=== PATIENT | female | born 1930 | race Hispanic/Latino ===

== ENCOUNTER 2018-06-22 12:05 | Inpatient (IN) | payer MEDICARE ==
[2018-06-22 12:17] VITALS: BMI 22.3
[2018-06-22 13:31] LABS: BASO # 0.1 K/uL (0.0-0.2); BASO % 0.7 % (0.0-2.0); EOS # 0.1 K/uL (0.0-0.7); LYMPH # 2.2 K/uL (1.0-4.3); LYMPH % 18.6 % (20.0-40.0); MEAN CELL VOLUME 91.8 fL (81.0-99.0); MEAN CORPUSCULAR HEMOGLOBIN 29.7 pg (27.0-31.0); MEAN CORPUSCULAR HGB CONC 32.4 g/dL (33.0-37.0); MEAN PLATELET VOLUME 8.7 fL (7.2-11.7); MONO # 0.7 K/uL (0.0-0.8); MONO % 5.4 % (0.0-10.0); NEUT # 8.9 K/uL (1.8-7.0); NEUT % 74.3 % (50.0-75.0); RBC 4.03 Mil/uL (3.80-5.20); RED CELL DISTRIBUTION WIDTH 15.2 % (11.5-14.5)
[2018-06-22 13:49] LABS: ALB/GLOB RATIO 1.1 (1.0-2.1); ALBUMIN 4.7 g/dL (3.5-5.0); BLOOD UREA NITROGEN 56 mg/dL (7-17); CALCIUM 9.5 mg/dl (8.6-10.4); GFR NON-AFRICAN AMERICAN 14
[2018-06-22 13:53] LABS: ALT/SGPT 10 U/L (9-52); AST/SGOT 29 U/L (14-36)
[2018-06-22 13:55] LABS: B-TYPE NATRIURETIC PEPTIDE 1600 pg/mL (0-900)
--- NOTE | 2018-06-22 14:44 | C.PDOC ---
History Of Present Illness Patient is a 87 year old female who presents to the ED after being referred by her PMD for uncontrolled HTN over 2 weeks. Patient states her hypertensive meds were stopped due to renal insufficiency.SHe states that she was switched form HCTZ and Norvasc to Nifedipine 30mg with good compliance. Patient denies any SOB, CP, nausea, dizziness, or headache. Time Seen by Provider: 06/22/18 13:03 Chief Complaint (Nursing): High Blood Pressure History Per: Patient History/Exam Limitations: no limitations Onset/Duration Of Symptoms: Days (2 weeks ) Associated Symptoms: denies: Chest Pain, Dizziness, Headache Exacerbating Factor(s): Pos: Recently Missed Doses Of Medication Recent travel outside of the [place]: No Additional History Per: Patient Past Medical History Reviewed: Historical Data, Nursing Documentation, Vital Signs Vital Signs: Last Vital Signs Temp 97.4 F L 06/22/18 12:17 Pulse 85 06/22/18 12:17 Resp 18 06/22/18 12:17 BP 192/87 H 06/22/18 12:17 Pulse Ox 94 L 06/22/18 12:17 - Medical History PMH: Diverticulitis, HTN, Pulmonary Embolism, Chronic Kidney Disease, TIA Surgical History: No Surg Hx - [facility] Procedures CENTRAL VENOUS CATHETER PLACEMENT WITH GUIDANCE (05/03/14) LAPAROSCOP LYSIS-PERITONEAL ADHES (05/03/14) PACKED CELL TRANSFUSION (01/21/14) PLICATION OF VENA CAVA (01/21/14) SERUM TRANSFUSION NEC (05/03/14) SM BOWEL SEGMENT ISOLAT (05/03/14) VACCINATION NEC (05/03/14) Family History: States: Unknown Family Hx - Social History Hx Tobacco Use: No Hx Alcohol Use: No Hx Substance Use: No - Immunization History Hx Tetanus Toxoid Vaccination: No Hx Influenza Vaccination: Yes Hx Pneumococcal Vaccination: No Review Of Systems Cardiovascular: Negative for: Chest Pain Respiratory: Negative for: Shortness of Breath Gastrointestinal: Negative for: Nausea Neurological: Negative for: Headache, Dizziness Physical Exam - Physical Exam Appears: Non-toxic, No Acute Distress, Other (white female ) Skin: Normal Color, Warm, Dry Head: Atraumatic, Normacephalic Oral Mucosa: Moist Neck: Normal ROM, Supple Chest: Symmetrical, No Deformity Cardiovascular: Rhythm Regular, No Murmur Respiratory: Normal Breath Sounds, No Rales, No Rhonchi, No Wheezing Extremity: Normal ROM Neurological/Psych: Oriented x3, Normal Speech, Normal Cognition, No Other (neurological changes ) ED Course And Treatment - Laboratory Results Result Diagrams: 06/22/18 13:25 06/22/18 13:25 Lab Results: Troponin I < 0.0120 ng/mL (0.00-0.120) 06/22/18 13:25 NT-Pro-B Natriuret Pep 1600 pg/mL (0-900) H 06/22/18 13:25 Total Bilirubin 0.7 mg/dL (0.2-1.3) 06/22/18 13:25 AST 29 U/L (14-36) 06/22/18 13:25 ALT 10 U/L (9-52) 06/22/18 13:25 Alkaline Phosphatase 100 U/L (38-126) 06/22/18 13:25 Total Protein 8.9 g/dL (6.3-8.3) H 06/22/18 13:25 Albumin 4.7 g/dL (3.5-5.0) 06/22/18 13:25 Globulin 4.2 gm/dL (2.2-3.9) H 06/22/18 13:25 Albumin/Globulin Ratio 1.1 (1.0-2.1) 06/22/18 13:25 Lab Interpretation: Abnormal (creat increased c/w 2.3 from 01/22) ECG: Interpreted By Ne ECG Rhythm: Sinus Rhythm ECG Interpretation: Normal Rate From EC O2 Sat by Pulse Oximetry: 94 (on RA) Pulse Ox Interpretation: Normal - Radiology CXR: Interpreted by Me CXR Interpretation: Yes: No Acute Disease Progress Note: norvasc 10 PO Reevaluation Time: 14:45 Reassessment Condition: Improved - Physician Consult Information Outcome Of Conversation: 1400: Falied to contact Dr. James to ascertain recent bun/Creat. 1445: d/w Dr. Eyad Tello- Hospitalist Application Manager- admitting for PMD Trudi araujo to admit. Medical Decision Making Medical Decision Making: Plan: EKG CXR Bloodwork Urinalysis Norvasc 10mg PO acute on chronic renal insuffiency, uncontrolled HTN Disposition Doctor Will See Patient In The: Hospital Counseled Patient/Family Regarding: Studies Performed, Diagnosis - Disposition Disposition: HOSPITALIZED Disposition Time: 14:47 Condition: GOOD - Clinical Impression Clinical Impression: Hypertension - Scribe Statement The provider has reviewed the documentation as recorded by the Duy Vargas All medical record entries made by the Devenibjacqueline were at my direction and personally dictated by me. I have reviewed the chart and agree that the record accurately reflects my personal performance of the history, physical exam, medical decision making, and the department course for this patient. I have also personally directed, reviewed, and agree with the discharge instructions and disposition.
[2018-06-22 15:03] LABS: SQUAMOUS EPITHIAL 2 /hpf (0-5); URINE BACTERIA RARE (<OCC); URINE BILIRUBIN NEGATIVE (NEGATIVE); URINE BLOOD NEGATIVE (NEGATIVE); URINE CLARITY Clear (Clear); URINE COLOR Straw (YELLOW); URINE GLUCOSE (UA) NORMAL (Normal); URINE LEUKOCYTE ESTERASE NEG Leu/uL (Negative); URINE PROTEIN 2+ mg/dL (NEGATIVE); URINE UROBILINOGEN NORMAL mg/dL (0.2-1.0)
--- NOTE | 2018-06-22 15:36 | CP.PCM.HP ---
History of Present Illness - History of Present Illness History of Present Illness: PGY-1 H&P for Dr. Tello's service Patient is a 87 year old female w/ PMH of colitis, HTN, CKD stage 3, and r ecurrent pulmonary embolism sent to emergency room for elevated blood pressure during INR check with Dr. Garcia. Patient states that she recently has had her blood pressure medications adjusted multiple times due to visiting multiple doctors. Patient states that she has been compliant with her medications. Patient admits to headaches and vision changes since blood pressure issues began. Patient states the headache is located in the posterior occipital region. Patient denies fevers, chest pain, sob, n/v, constipation, dysuria, and leg pain. PMH- colitis, HTN, recurrent pulmonary embolism PSH- Denies FH- Heart disease ('s family) Meds- Warfarin 2mg daily, Nifedipine 30mg daily, Albuterol 2 puffs daily, Imodium PRN All- NKDA Social- Denies alcohol, drug, tobacco use PMD- Dr. James Code- DNR/DNI Present on Admission - Present on Admission Any Indicators Present on Admission: Yes History of DVT/PE: Yes Review of Systems - Review of Systems Review of Systems: 12 point ROS obtained and noted in HPI Past Patient History - Past Medical History & Family History Past Medical History?: Yes - Past Social History Smoking Status: Never Smoked - CARDIAC Hx Hypertension: Yes - PULMONARY Hx Pulmonary Embolism: Yes - NEUROLOGICAL Hx Transient Ischemic Attacks (TIA): Yes - HEENT Hx HEENT Problems: No - RENAL Hx Chronic Kidney Disease: Yes - ENDOCRINE/METABOLIC Hx Endocrine Disorders: No - HEMATOLOGICAL/ONCOLOGICAL Hx Blood Disorders: No - INTEGUMENTARY Hx Dermatological Problems: No - MUSCULOSKELETAL/RHEUMATOLOGICAL Hx Falls: Yes - GASTROINTESTINAL Hx Diverticulitis: Yes - GENITOURINARY/GYNECOLOGICAL Hx Genitourinary Disorders: No - PSYCHIATRIC Hx Substance Use: No - SURGICAL HISTORY Hx Surgeries: Yes Hx Hysterectomy: Yes Other/Comment: stomach obstruction surgery - ANESTHESIA Hx Anesthesia: Yes Hx Anesthesia Reactions: No Meds Allergies/Adverse Reactions: Allergies Allergy/AdvReac Type Severity Reaction Status Date / Time No Known Allergies Allergy Verified 06/22/18 12:16 Physical Exam - Constitutional Appears: Non-toxic, No Acute Distress - Head Exam Head Exam: NORMAL INSPECTION, NORMOCEPHALIC - Eye Exam Eye Exam: EOMI, Normal appearance. absent: Nystagmus, Scleral icterus - ENT Exam ENT Exam: Mucous Membranes Moist, Normal Exam - Respiratory Exam Respiratory Exam: NORMAL BREATHING PATTERN. absent: Rales, Rhonchi, Wheezes - Cardiovascular Exam Cardiovascular Exam: REGULAR RHYTHM, +S1, +S2. absent: Tachycardia, JVD, RRR - GI/Abdominal Exam GI & Abdominal Exam: Normal Bowel Sounds, Soft. absent: Diminished Bowel Sounds, Distended, Firm, Guarding - Extremities Exam Extremities exam: Positive for: normal inspection, pedal edema. Negative for: tenderness Additional comments: minimal pedal edema noted - Neurological Exam Neurological exam: Alert, Oriented x3 - Psychiatric Exam Psychiatric exam: Normal Affect, Normal Mood - Skin Skin Exam: Dry, Normal Color Results - Vital Signs Recent Vital Signs: Last Vital Signs Temp 97.4 F L 06/22/18 12:17 Pulse 85 06/22/18 12:17 Resp 18 06/22/18 14:35 BP 198/90 H 06/22/18 14:35 Pulse Ox 94 L 06/22/18 15:24 - Labs Result Diagrams: 06/22/18 13:25 06/22/18 13:25 Labs: Laboratory Results - last 24 hr 06/22/18 06/22/18 06/22/18 13:25 13:25 14:36 WBC 12.0 H RBC 4.03 Hgb 12.0 D Hct 37.0 MCV 91.8 D MCH 29.7 MCHC 32.4 L RDW 15.2 H Plt Count 346 D MPV 8.7 Neut % (Auto) 74.3 Lymph % (Auto) 18.6 L [place] % (Auto) 5.4 Eos % (Auto) 1.0 Baso % (Auto) 0.7 Neut # (Auto) 8.9 H Lymph # (Auto) 2.2 [place] # (Auto) 0.7 Eos # (Auto) 0.1 Baso # (Auto) 0.1 Sodium 140 Potassium 5.1 Chloride 107 Carbon Dioxide 19 L Anion Gap 19 BUN 56 H Creatinine 3.2 H Est GFR ( Amer) 17 Est GFR (Non-Af Amer) 14 Random Glucose 100 Calcium 9.5 Total Bilirubin 0.7 AST 29 ALT 10 Alkaline Phosphatase 100 Troponin I < 0.0120 NT-Pro-B Natriuret Pep 1600 H Total Protein 8.9 H Albumin 4.7 Globulin 4.2 H Albumin/Globulin Ratio 1.1 Urine Color Straw Urine Clarity Clear Urine pH 6.0 Ur Specific [place] 1.011 Urine Protein 2+ H Urine Glucose (UA) Normal Urine Ketones Negative Urine Blood Negative Urine Nitrate Negative Urine Bilirubin Negative Urine Urobilinogen Normal Ur Leukocyte Esterase Neg Urine WBC (Auto) 1 Urine RBC (Auto) 1 Ur Squamous Epith Cells 2 Urine Bacteria Rare Assessment & Plan - Assessment and Plan (Free Text) Assessment: Patient is a 87 year old female w/ PMH of colitis, HTN, CKD stage 4, and recurrent pulmonary embolism sent to emergency room for elevated blood pressure during INR check with Dr. Garcia. Admitted for hypertensive emergency with elevated creatinine, headaches, and vision changes. Hypertensive emergency Nephrology Consulted- Dr. Lunsford- recommendations appreciated Norvasc given in ED Nifedipine 30mg po daily- home med Norvasc 10mg po prn Continuous blood pressure checks q4h DO not reduce blood pressure more than 25% in first 6 hours (admitting bp 200/110) Tylenol 650mg po PRN EKG- NSR with normal qtc; no ST elevations noted; patient asymptomatic of chest pain Will discuss with PMD for baseline of Cr ARF on CKD Nephro Consult: Jonn - appreciate recommendations NS @ 40mls/hr; consider renal ultrasound if patient Cr does not improve unknown baseline trend CMP in AM consider possible dialysis AVF placement if patient amenable Hx of recurrent pulmonary emoblism Dr. Garcia outpatient has workup Warfarin 2mg po daily INR pending Hx of Colitis Imodium as needed (educate patient that imodium is unnecessary as bacterial toxins need to be removed) Leukocytosis Procal pending Trend CBC in am Afebrile GI ppx: Not indicated at this time DVT ppx: Warfarin 2mg po daily Renal Diet PGY-1 Rhonda Olguin Medical Management discussed with Dr. Tello
--- NOTE | 2018-06-22 16:21 | RAD ---
Date of service: 06/22/2018 PROCEDURE: CHEST RADIOGRAPH, 1 VIEW HISTORY: SOB COMPARISON: 03/24/2017 FINDINGS: LUNGS: Clear. PLEURA: No pneumothorax or pleural fluid seen. CARDIOVASCULAR: Atherosclerotic calcification and mural plaque present. Findings are seen throughout the aorta which is non aneurysmal. No radiographic findings to suggest acute or significant cardiovascular disease. OSSEOUS STRUCTURES: No significant abnormalities. VISUALIZED UPPER ABDOMEN: Normal. OTHER FINDINGS: None. IMPRESSION: No active disease. No acute/significant interval changes. Concordant results with the preliminary interpretation rendered by the emergency department physician procedure.
[2018-06-22 16:38] VITALS: O2SAT 96
[2018-06-22] MEDS: NIFEdipine 30 mg ER Tab PO SCH (16:41)
[2018-06-22] MEDS ORDERED: Sodium Chloride 0.9% 1,000 ML IV SCH (17:00)
[2018-06-22 19:20] LABS: INR 2.2; PROTHROMBIN TIME 24.1 SECONDS (9.7-12.2)
[2018-06-22 19:32] VITALS: TEMP 97.9
--- NOTE | 2018-06-22 21:58 | CP.PCM.PCO ---
Physician Communication Note - Physician Communication Note Physician Communication Note: Please see above
[2018-06-23 00:22] VITALS: RESP 20
[2018-06-23 10:10] LABS: BASO # 0.1 K/uL (0.0-0.2); BASO % 0.8 % (0.0-2.0); EOS # 0.1 K/uL (0.0-0.7); EOS % 1.5 % (0.0-4.0); HEMOGLOBIN 10.5 g/dL (11.0-16.0); LYMPH # 2.5 K/uL (1.0-4.3); LYMPH % 28.8 % (20.0-40.0); MEAN CELL VOLUME 92.4 fL (81.0-99.0); MEAN CORPUSCULAR HGB CONC 32.5 g/dL (33.0-37.0); MEAN PLATELET VOLUME 8.6 fL (7.2-11.7); MONO # 0.6 K/uL (0.0-0.8); MONO % 6.9 % (0.0-10.0); NEUT # 5.4 K/uL (1.8-7.0); RBC 3.49 Mil/uL (3.80-5.20); RED CELL DISTRIBUTION WIDTH 14.9 % (11.5-14.5); WHITE BLOOD COUNT 8.8 K/uL (4.8-10.8)
[2018-06-23 10:22] LABS: ALB/GLOB RATIO 1.2 (1.0-2.1); ALBUMIN 3.9 g/dL (3.5-5.0); CALCIUM 8.7 mg/dl (8.6-10.4)
[2018-06-23] MEDS: NIFEdipine 30 mg ER Tab PO SCH (11:14)
[2018-06-23] MEDS ORDERED: Magnesium Oxide 400 mg Tab UD PO SCH (12:30)
--- NOTE | 2018-06-23 15:27 | CP.PCM.DIS ---
<Rhonda Olguin - Last Filed: 06/23/18 15:13> Provider - Provider Date of Admission: 06/22/18 14:44 Attending physician: Eyad Tello MD Consults: 06/22/18 15:43 Nephrology Consult Routine Comment: Consulting Provider: Donovan Lunsford Consulting Physician: Donovan Lunsford Reason for Consult: HTN emergency, DARIUSZ on CKD Time Spent in preparation of Discharge (in minutes): 45 Hospital Course - Lab Results Lab Results: Most Recent Lab Values WBC 8.8 K/uL (4.8-10.8) 06/23/18 09:30 RBC 3.49 Mil/uL (3.80-5.20) L 06/23/18 09:30 Hgb 10.5 g/dL (11.0-16.0) L 06/23/18 09:30 Hct 32.2 % (34.0-47.0) L 06/23/18 09:30 MCV 92.4 fL (81.0-99.0) 06/23/18 09:30 MCH 30.0 pg (27.0-31.0) 06/23/18 09:30 MCHC 32.5 g/dL (33.0-37.0) L 06/23/18 09:30 RDW 14.9 % (11.5-14.5) H 06/23/18 09:30 Plt Count 283 K/uL (130-400) 06/23/18 09:30 MPV 8.6 fL (7.2-11.7) 06/23/18 09:30 Neut % (Auto) 62.0 % (50.0-75.0) 06/23/18 09:30 Lymph % (Auto) 28.8 % (20.0-40.0) 06/23/18 09:30 [place] % (Auto) 6.9 % (0.0-10.0) 06/23/18 09:30 Eos % (Auto) 1.5 % (0.0-4.0) 06/23/18 09:30 Baso % (Auto) 0.8 % (0.0-2.0) 06/23/18 09:30 Neut # (Auto) 5.4 K/uL (1.8-7.0) 06/23/18 09:30 Lymph # (Auto) 2.5 K/uL (1.0-4.3) 06/23/18 09:30 [place] # (Auto) 0.6 K/uL (0.0-0.8) 06/23/18 09:30 Eos # (Auto) 0.1 K/uL (0.0-0.7) 06/23/18 09:30 Baso # (Auto) 0.1 K/uL (0.0-0.2) 06/23/18 09:30 PT 24.1 SECONDS (9.7-12.2) H 06/22/18 18:57 INR 2.2 06/22/18 18:57 Sodium 140 mmol/L (132-148) 06/23/18 09:30 Potassium 4.5 mmol/L (3.6-5.2) 06/23/18 09:30 Chloride 110 mmol/L (98-107) H 06/23/18 09:30 Carbon Dioxide 22 mmol/L (22-30) 06/23/18 09:30 Anion Gap 13 (10-20) 06/23/18 09:30 BUN 55 mg/dL (7-17) H 06/23/18 09:30 Creatinine 3.5 mg/dL (0.7-1.2) H 06/23/18 09:30 Est GFR ( Amer) 15 06/23/18 09:30 Est GFR (Non-Af Amer) 12 06/23/18 09:30 Random Glucose 87 mg/dL (65-105) 06/23/18 09:30 Calcium 8.7 mg/dl (8.6-10.4) 06/23/18 09:30 Phosphorus 5.0 mg/dL (2.5-4.5) H 06/23/18 09:30 Magnesium 1.5 mg/dL (1.6-2.3) L 06/23/18 09:30 Total Bilirubin 0.4 mg/dL (0.2-1.3) 06/23/18 09:30 AST 14 U/L (14-36) D 06/23/18 09:30 ALT 18 U/L (9-52) 06/23/18 09:30 Alkaline Phosphatase 79 U/L (38-126) 06/23/18 09:30 Troponin I < 0.0120 ng/mL (0.00-0.120) 06/22/18 13:25 NT-Pro-B Natriuret Pep 1600 pg/mL (0-900) H 06/22/18 13:25 Total Protein 7.0 g/dL (6.3-8.3) 06/23/18 09:30 Albumin 3.9 g/dL (3.5-5.0) 06/23/18 09:30 Globulin 3.2 gm/dL (2.2-3.9) 06/23/18 09:30 Albumin/Globulin Ratio 1.2 (1.0-2.1) 06/23/18 09:30 Procalcitonin 0.09 NG/ML (0.19-0.49) L 06/22/18 18:57 Urine Color Straw (YELLOW) 06/22/18 14:36 Urine Clarity Clear (Clear) 06/22/18 14:36 Urine pH 6.0 (5.0-8.0) 06/22/18 14:36 Ur Specific [place] 1.011 (1.003-1.030) 06/22/18 14:36 Urine Protein 2+ mg/dL (NEGATIVE) H 06/22/18 14:36 Urine Glucose (UA) Normal mg/dL (Normal) 06/22/18 14:36 Urine Ketones Negative mg/dL (NEGATIVE) 06/22/18 14:36 Urine Blood Negative (NEGATIVE) 06/22/18 14:36 Urine Nitrate Negative (NEGATIVE) 06/22/18 14:36 Urine Bilirubin Negative (NEGATIVE) 06/22/18 14:36 Urine Urobilinogen Normal mg/dL (0.2-1.0) 06/22/18 14:36 Ur Leukocyte Esterase Neg [place]/uL (Negative) 06/22/18 14:36 Urine WBC (Auto) 1 /hpf (0-5) 06/22/18 14:36 Urine RBC (Auto) 1 /hpf (0-3) 06/22/18 14:36 Ur Squamous Epith Cells 2 /hpf (0-5) 06/22/18 14:36 Urine Bacteria Rare (<OCC) 06/22/18 14:36 - Hospital Course Hospital Course: Upon Admission Patient is a 87 year old female w/ PMH of colitis, HTN, CKD stage 3, and recurrent pulmonary embolism sent to emergency room for elevated blood pressure during INR check with Dr. Garcia. Patient states that she recently has had her blood pressure medications adjusted multiple times due to visiting multiple doct ors. Patient states that she has been compliant with her medications. Patient admits to headaches and vision changes since blood pressure issues began. Patient states the headache is located in the posterior occipital region. Patient denies fevers, chest pain, sob, n/v, constipation, dysuria, and leg pain. Hospital Course Patient was admitted for elevated blood pressure of 192/87. She was given Norvasc 10 mg PO x2 in ED and was continued on her home medication of nifedipine 30 mg PO daily. Repeat blood pressure within 30 minutes was noted to be 160/80. Patient's blood pressure in AM was under control only with use of nifedipine. Patient left AMA with nifedipine and was told to follow up with PMD. Discharge Plan 1. Patient left AMA. 2. Discussion was had with patient and son to continue home medications including warfarin and nifedipine. The same dosages of the medications will be continued at the same time patient has taken the medications. 3. Patient was educated to followup PMD within 3-7 days of discharge from hospital. 4. Patient will be given information for nephrology Dr. Lunsford to set up care. Discharge Exam - Head Exam Head Exam: NORMAL INSPECTION, NORMOCEPHALIC - Eye Exam Eye Exam: EOMI, Normal appearance. absent: Nystagmus, Scleral icterus - ENT Exam ENT Exam: Mucous Membranes Moist - Respiratory Exam Respiratory Exam: NORMAL BREATHING PATTERN. absent: Rhonchi, Wheezes, Respiratory Distress - Cardiovascular Exam Cardiovascular Exam: REGULAR RHYTHM, +S1, +S2. absent: Tachycardia - GI/Abdominal Exam GI & Abdominal Exam: Normal Bowel Sounds, Soft. absent: Distended, Firm, Guarding, Hernia, Tenderness - Extremities Exam Extremities exam: normal inspection - Neurological Exam Neurological exam: Alert, Oriented x3 - Psychiatric Exam Psychiatric exam: Normal Affect, Normal Mood - Skin Skin Exam: Dry, Intact, Normal Color Discharge Plan - Discharge Medications Prescriptions: RX: NIFEdipine ER [Procardia XL] 30 mg PO DAILY #30 ter - Follow Up Plan Condition: GOOD Disposition: AGAINST MEDICAL ADVICE Instructions: Hypertension (DC), Hypertension (GEN) Additional Instructions: 1. Patient left AMA. 2. Discussion was had with patient and son to continue home medications including warfarin and nifedipine. The same dosages of the medications will be continued at the same time patient has taken the medications. 3. Patient was educated to followup PMD within 3-7 days of discharge from hospital. 4. Patient will be given information for nephrology Dr. Lunsford to set up care. Referrals: Donovan Lunsford MD [Staff Provider] - <Nancy Santoyo V - Last Filed: 06/23/18 23:22> Provider - Provider Date of Admission: 06/22/18 14:44 Attending physician: Eyad Tello MD Consults: 06/22/18 15:43 Nephrology Consult Routine Comment: Consulting Provider: Donovan Lunsford Consulting Physician: Donovan Lunsford Reason for Consult: HTN emergency, DARIUSZ on CKD Hospital Course - Lab Results Lab Results: Most Recent Lab Values WBC 8.8 K/uL (4.8-10.8) 06/23/18 09:30 RBC 3.49 Mil/uL (3.80-5.20) L 06/23/18 09:30 Hgb 10.5 g/dL (11.0-16.0) L 06/23/18 09:30 Hct 32.2 % (34.0-47.0) L 06/23/18 09:30 MCV 92.4 fL (81.0-99.0) 06/23/18 09:30 MCH 30.0 pg (27.0-31.0) 06/23/18 09:30 MCHC 32.5 g/dL (33.0-37.0) L 06/23/18 09:30 RDW 14.9 % (11.5-14.5) H 06/23/18 09:30 Plt Count 283 K/uL (130-400) 06/23/18 09:30 MPV 8.6 fL (7.2-11.7) 06/23/18 09:30 Neut % (Auto) 62.0 % (50.0-75.0) 06/23/18 09:30 Lymph % (Auto) 28.8 % (20.0-40.0) 06/23/18 09:30 [place] % (Auto) 6.9 % (0.0-10.0) 06/23/18 09:30 Eos % (Auto) 1.5 % (0.0-4.0) 06/23/18 09:30 Baso % (Auto) 0.8 % (0.0-2.0) 06/23/18 09:30 Neut # (Auto) 5.4 K/uL (1.8-7.0) 06/23/18 09:30 Lymph # (Auto) 2.5 K/uL (1.0-4.3) 06/23/18 09:30 [place] # (Auto) 0.6 K/uL (0.0-0.8) 06/23/18 09:30 Eos # (Auto) 0.1 K/uL (0.0-0.7) 06/23/18 09:30 Baso # (Auto) 0.1 K/uL (0.0-0.2) 06/23/18 09:30 PT 24.1 SECONDS (9.7-12.2) H 06/22/18 18:57 INR 2.2 06/22/18 18:57 Sodium 140 mmol/L (132-148) 06/23/18 09:30 Potassium 4.5 mmol/L (3.6-5.2) 06/23/18 09:30 Chloride 110 mmol/L (98-107) H 06/23/18 09:30 Carbon Dioxide 22 mmol/L (22-30) 06/23/18 09:30 Anion Gap 13 (10-20) 06/23/18 09:30 BUN 55 mg/dL (7-17) H 06/23/18 09:30 Creatinine 3.5 mg/dL (0.7-1.2) H 06/23/18 09:30 Est GFR ( Amer) 15 06/23/18 09:30 Est GFR (Non-Af Amer) 12 06/23/18 09:30 Random Glucose 87 mg/dL (65-105) 06/23/18 09:30 Calcium 8.7 mg/dl (8.6-10.4) 06/23/18 09:30 Phosphorus 5.0 mg/dL (2.5-4.5) H 06/23/18 09:30 Magnesium 1.5 mg/dL (1.6-2.3) L 06/23/18 09:30 Total Bilirubin 0.4 mg/dL (0.2-1.3) 06/23/18 09:30 AST 14 U/L (14-36) D 06/23/18 09:30 ALT 18 U/L (9-52) 06/23/18 09:30 Alkaline Phosphatase 79 U/L (38-126) 06/23/18 09:30 Troponin I < 0.0120 ng/mL (0.00-0.120) 06/22/18 13:25 NT-Pro-B Natriuret Pep 1600 pg/mL (0-900) H 06/22/18 13:25 Total Protein 7.0 g/dL (6.3-8.3) 06/23/18 09:30 Albumin 3.9 g/dL (3.5-5.0) 06/23/18 09:30 Globulin 3.2 gm/dL (2.2-3.9) 06/23/18 09:30 Albumin/Globulin Ratio 1.2 (1.0-2.1) 06/23/18 09:30 Procalcitonin 0.09 NG/ML (0.19-0.49) L 06/22/18 18:57 Urine Color Straw (YELLOW) 06/22/18 14:36 Urine Clarity Clear (Clear) 06/22/18 14:36 Urine pH 6.0 (5.0-8.0) 06/22/18 14:36 Ur Specific [place] 1.011 (1.003-1.030) 06/22/18 14:36 Urine Protein 2+ mg/dL (NEGATIVE) H 06/22/18 14:36 Urine Glucose (UA) Normal mg/dL (Normal) 06/22/18 14:36 Urine Ketones Negative mg/dL (NEGATIVE) 06/22/18 14:36 Urine Blood Negative (NEGATIVE) 06/22/18 14:36 Urine Nitrate Negative (NEGATIVE) 06/22/18 14:36 Urine Bilirubin Negative (NEGATIVE) 06/22/18 14:36 Urine Urobilinogen Normal mg/dL (0.2-1.0) 06/22/18 14:36 Ur Leukocyte Esterase Neg [place]/uL (Negative) 06/22/18 14:36 Urine WBC (Auto) 1 /hpf (0-5) 06/22/18 14:36 Urine RBC (Auto) 1 /hpf (0-3) 06/22/18 14:36 Ur Squamous Epith Cells 2 /hpf (0-5) 06/22/18 14:36 Urine Bacteria Rare (<OCC) 06/22/18 14:36 Attending/Attestation - Attestation Notes (Text): Patient requested to leave against medical advice prior to my evaluation. Per discussion with my resident and colleague, patient had refused CT head w/o contrast given her complaint of headache while blood treatment for pulmonary embolus. Patient noted on H/H drop by 2 but unclear if dilutional or not. Patient noted refused colonoscopy though recommended. Patient has pending appointment in 2-3 with nephrology but noted to refuse dialysis. Patient left against medical advice. Patient provided prescription of blood pressure medication. this is a brief summary of patient's hospitalization. please refer to EMR for full detail of record. Primary diagnoses: 1) Left against medical advice 2) Hypertensive urgency 3) Known chronic kidney disease
[2018-06-23 16:41] VITALS: BP 142/70; PULSE 73
--- NOTE | 2018-06-24 05:53 | CARD ---
APPROVED REPORT Date of service: 06/22/2018 EKG Measurement Heart [id number] <Conclusion> Normal sinus rhythm with sinus arrhythmia Low voltage QRS Possible Inferior infarct, age undetermined Cannot rule out Anterior infarct, age undetermined Abnormal ECG
== END 2018-06-23 13:20 | disposition left against medical advice (07) | DRG 305 ==
LOC: C.ER 12:05 → C.9E 14:44 → C.5S 18:43
PROVIDERS: ADMIT Family Medicine; ATTEND Family Medicine
DX: I16.1 Hypertensive emergency (principal); N17.9 Acute kidney failure, unspecified; N18.4 Chronic kidney disease, stage 4 (severe); I12.9 Hypertensive chronic kidney disease with stage 1 through stage 4 chronic kidney disease, or unspecified chronic kidney disease; Z66 Do not resuscitate; Z86.711 Personal history of pulmonary embolism; D72.829 Elevated white blood cell count, unspecified; Z79.01 Long term (current) use of anticoagulants; Z86.73 Personal history of transient ischemic attack (TIA), and cerebral infarction without residual deficits